=== PATIENT | male | born 1950 ===

== ENCOUNTER 2018-06-25 06:23 | Day surgery (SDC) | payer MEDICARE ==
[2018-06-11 11:19] VITALS: BMI 36.9
[~2018-06-25 06:23] MED LIST: Ciprofloxacin 0.3% OPTH SOLN OD SCH; Ketorolac Tromethamine 0.5% Opth Soln (3 ml) OD SCH; Phenylephrine 2.5% Opht Soln OD SCH; Tropicamide 0.5% Opht Sol OD SCH; acetaZOLAMIDE 500 mg SR Cap PO ONE
[2018-06-25] MEDS ORDERED: Povidone Iodine Ophthalmic 5% Soln ONE (07:20)
[2018-06-25] MEDS ORDERED: Carbachol 0.01% IO ONE (07:20)
[2018-06-25] MEDS ORDERED: Tobramycin/Dexamethasone OPHT OINT ONE (07:20)
[2018-06-25] MEDS ORDERED: Chondroitin/Hyaluronate Opth Syringe KIT (0.55 ml-0.5 ml) IO ONE (07:20)
[2018-06-25] MEDS ORDERED: Hyaluronidase Human, Recombi 150 U/ML VIAL ONE (07:20)
[2018-06-25] MEDS ORDERED: Lidocaine 2% MPF (5 ml) Inj ONE (07:21)
[2018-06-25] MEDS ORDERED: Lactated Ringer's 500 ML IV ONE (07:57)
[2018-06-25 08:42] VITALS: TEMP 98
[2018-06-25 08:48] LABS: INR 1.2; PROTHROMBIN TIME 13.6 SECONDS (9.7-12.2)
[2018-06-25] MEDS ORDERED: Midazolam 2 MG/2 ML VIAL ONE (09:40)
[2018-06-25 11:09] VITALS: BP 140/59; PULSE 100; RESP 18; O2SAT 97
--- NOTE | 2018-06-25 22:19 | OP ---
PROCEDURE DATE: 06/25/2018 PREOPERATIVE DIAGNOSIS: Cataract, right eye. POSTOPERATIVE DIAGNOSIS: Cataract, right eye. PROCEDURE: Phacoemulsification of right eye, insertion of posterior chamber implant. SURGEON: Cameron Jamil MD. CO-SURGEON: Oscar Lopez MD. ANESTHESIA: Local IV sedation. DESCRIPTION OF PROCEDURE: The patient was brought into the operating room, placed in supine position, prepped and draped in the usual fashion for ophthalmic surgery. Lid speculum was inserted, lids and exposing globe. A side-port incision was made superiorly and inferiorly with a disposable sharp blade. Anterior chamber was filled with Viscoat. A near clear corneal incision was made temporally with a 2.75-mm keratome. Capsulorrhexis was then performed with Utrata forceps. Hydrodissection carried out with balanced salt solution. Nucleus was phacoemulsified. Remaining cortical fragments were removed with a split irrigation and aspiration system. The capsular sac was filled with Provisc. A posterior chamber lens was then injected into the capsular sac and rotated into horizontal position. Provisc was aspirated out of the anterior chamber. The pupil was constricted with Miochol. The wound was found to be watertight. Topical Betadine, Timoptic, and TobraDex ointment and pressure patch were applied. The patient tolerated the procedure well. Cameron Jamil MD
== END 2018-06-25 11:18 | disposition home or self-care (01) ==
LOC: C.SDS 06:23
PROVIDERS: ATTEND Ophthalmology
DX: H25.11 Age-related nuclear cataract, right eye (principal)
CPT/HCPCS: 36415; 66984; 82948; 85610; 85730; J2250; J3010; J3470; J7120